=== PATIENT | female | born 1950 | race Caucasian/White ===

== ENCOUNTER → 2016-10-06 | Outpatient (CLI) | payer MEDICARE, BC | LOC: MAMO 08-14 15:20 | DX: Z12.31 Encounter for screening mammogram for malignant neoplasm of breast (principal) | CPT/HCPCS: G0202 ==

== ENCOUNTER 2021-01-16 20:07 | Inpatient (IN) | payer MEDICARE, OTHER ==
[~2021-01-16] VITALS: Ht 152.4 cm; Wt 101.2 kg
[2021-01-16 21:12] LABS: HEMOGLOBIN 15.5 gm/dl (12.3-15.3); RED BLOOD COUNT 4.82 M/UL (4.00-5.10); WHITE BLOOD COUNT 10.1 K/UL (4.5-11.0)
[2021-01-17 05:40] LABS: HEMOGLOBIN 15.7 gm/dl (12.3-15.3); RED BLOOD COUNT 4.9 M/UL (4.00-5.10); WHITE BLOOD COUNT 11.2 K/UL (4.5-11.0)
[2021-01-17] MEDS ORDERED: ZESTRIL 40 MG T40 MG PO (09:21)
[2021-01-17] MEDS ORDERED: TYLENOL EXTRA500 MG PO (09:22)
[2021-01-17] MEDS ORDERED: VITAMIN D21250 MCG PO (09:22)
[2021-01-17] MEDS ORDERED: DILTIAZEM ER180 M2 PO (09:22)
[2021-01-18 04:46] LABS: HEMOGLOBIN 15.7 gm/dl (12.3-15.3); RED BLOOD COUNT 4.84 M/UL (4.00-5.10); WHITE BLOOD COUNT 9.2 K/UL (4.5-11.0)
--- NOTE | 2021-01-18 14:07 | NUR ---
At approximately 1000 PT's NG tube removed by primary nurse per doctor order. Diet switched to clear liquids.
[2021-01-19] MEDS ORDERED: MI-ACID80 MG PO (10:04)
[2021-01-19] MEDS ORDERED: PROTONIX 40 MG40 M1 PO (10:04)
[2021-01-19] MEDS ORDERED: ZOFRAN4 MG PO (10:10)
== END 2021-01-19 09:45 | disposition home or self-care (01) | DRG 390 ==
LOC: ER1 20:07 → CDU 01-17 01:57 → MED SURG 4 01-17 08:46
PROVIDERS: Physician Assistant; ADMIT Internal Medicine
DX: K56.600 Partial intestinal obstruction, unspecified as to cause (principal); I12.9 Hypertensive chronic kidney disease with stage 1 through stage 4 chronic kidney disease, or unspecified chronic kidney disease; N18.2 Chronic kidney disease, stage 2 (mild); K21.9 Gastro-esophageal reflux disease without esophagitis; Z20.822 Contact with and (suspected) exposure to COVID-19; E55.9 Vitamin D deficiency, unspecified; Z90.710 Acquired absence of both cervix and uterus; Z88.6 Allergy status to analgesic agent
CPT/HCPCS: 36415; 74018; 80048; 80053; 81001; 83605; 83690; 83735; 85025; 87086; 99285; J1650; J2405; J7030; Q9963

== ENCOUNTER → 2021-08-13 | Outpatient (CLI) | payer MEDICARE, OTHER ==
[~2021-08-13] MED LIST: DILTIAZEM ER180 M2 PO; MI-ACID80 MG PO; PROTONIX 40 MG40 M1 PO; TYLENOL EXTRA500 MG PO; VITAMIN D21250 MCG PO; ZESTRIL 40 MG T40 MG PO; ZOFRAN4 MG PO
== END ==
LOC: KOH-I 11:36
DX: R06.02 Shortness of breath (principal)
CPT/HCPCS: 71046

== ENCOUNTER 2021-09-04 07:06 | Emergency (ER) | payer MEDICARE, OTHER ==
[2021-09-04 08:06] LABS: BUN/CREATININE RATIO 21 (0-10)
[2021-09-04 08:33] LABS: HEMOGLOBIN 8.5 gm/dl (12.3-15.3); RED BLOOD COUNT 2.67 M/UL (4.00-5.10); WHITE BLOOD COUNT 16.7 K/UL (4.5-11.0)
== END 2021-09-04 11:05 | disposition home or self-care (01) ==
LOC: ER1 07:06
PROVIDERS: Nurse Practitioner
DX: R53.1 Weakness (principal); I10 Essential (primary) hypertension; Z88.5 Allergy status to narcotic agent; Z20.822 Contact with and (suspected) exposure to COVID-19
CPT/HCPCS: 0240U; 71045; 80053; 81001; 82550; 82553; 83880; 84484; 85025; 93005; 99285; J7030

== ENCOUNTER → 2021-09-05 | Outpatient (CLI) | payer MEDICARE, OTHER | LOC: KOH-I 08:00 | DX: N28.1 Cyst of kidney, acquired (principal); K76.0 Fatty (change of) liver, not elsewhere classified; N13.30 Unspecified hydronephrosis | CPT/HCPCS: 76705; 76775 ==

== ENCOUNTER → 2021-09-20 | Outpatient (CLI) | payer MEDICARE, OTHER | LOC: MAMO 09-18 11:00 | DX: C50.919 Malignant neoplasm of unspecified site of unspecified female breast (principal); N64.4 Mastodynia; N64.59 Other signs and symptoms in breast; R89.8 Other abnormal findings in specimens from other organs, systems and tissues | CPT/HCPCS: 77066; G0279 ==

== ENCOUNTER → 2021-09-23 | Outpatient (CLI) | payer MEDICARE, OTHER | LOC: EMI 09-20 09:00 | DX: D69.6 Thrombocytopenia, unspecified (principal); D72.829 Elevated white blood cell count, unspecified; K90.9 Intestinal malabsorption, unspecified; G31.9 Degenerative disease of nervous system, unspecified; J32.0 Chronic maxillary sinusitis; R93.89 Abnormal findings on diagnostic imaging of other specified body structures | CPT/HCPCS: 70553; A9577 ==

== ENCOUNTER → 2021-09-27 | Outpatient (CLI) | payer MEDICARE, OTHER ==
[~2021-09-27] VITALS: Ht 165.1 cm; Wt 102.1 kg
[2021-09-27 12:17] LABS: HEMOGLOBIN 7.7 gm/dl (12.3-15.3)
== END ==
LOC: OPSV 11:29
PROVIDERS: Internal Medicine Hematology & Oncology
DX: D64.9 Anemia, unspecified (principal)
CPT/HCPCS: 36430; 85014; 85018; 86850; 86900; 86901; 86920; P9016

== ENCOUNTER → 2021-10-01 | Outpatient (CLI) | payer MEDICARE, OTHER | LOC: NM 07:56 | DX: D69.6 Thrombocytopenia, unspecified (principal); D72.829 Elevated white blood cell count, unspecified; K90.9 Intestinal malabsorption, unspecified | CPT/HCPCS: 78306; A9503 ==

== ENCOUNTER → 2021-10-10 | Outpatient (CLI) | payer MEDICARE, OTHER | LOC: MAMO 09-03 13:30 → EXRD 13:00 | DX: D69.6 Thrombocytopenia, unspecified (principal); D72.829 Elevated white blood cell count, unspecified; K90.9 Intestinal malabsorption, unspecified; M81.0 Age-related osteoporosis without current pathological fracture | CPT/HCPCS: 77080 ==

== ENCOUNTER → 2021-10-21 | Outpatient (CLI) | payer MEDICARE, OTHER ==
[2021-10-21 16:06] LABS: HEMOGLOBIN 8.7 gm/dl (12.3-15.3); RED BLOOD COUNT 2.3 M/UL (4.00-5.10); WHITE BLOOD COUNT 9.1 K/UL (4.5-11.0)
[2021-10-21 16:19] LABS: BUN/CREATININE RATIO 15 (0-10)
== END ==
LOC: RAD 15:32
PROVIDERS: Nurse Practitioner Family
DX: E03.9 Hypothyroidism, unspecified (principal); N18.9 Chronic kidney disease, unspecified; R60.9 Edema, unspecified; R06.02 Shortness of breath
CPT/HCPCS: 36415; 71046; 80048; 83880; 84443; 85025

== ENCOUNTER 2021-11-01 10:28 | Inpatient (IN) | payer MEDICARE, OTHER ==
[~2021-11-01] VITALS: Ht 165.1 cm; Wt 99.8 kg
[2021-11-01 12:38] LABS: HEMOGLOBIN 8.6 gm/dl (12.3-15.3); RED BLOOD COUNT 2.32 M/UL (4.00-5.10); WHITE BLOOD COUNT 8.3 K/UL (4.5-11.0)
[2021-11-01 12:56] LABS: BUN/CREATININE RATIO 15 (0-10)
[2021-11-01] MEDS ORDERED: LASIX20 MG PO (14:25)
[2021-11-02 00:09] LABS: BODY FLUID SOURCE PLEURAL; LDH, BODY FLUID 254 U/L; TOTAL PROTEIN, BODY FLUID 4.4 gm/dL; WBC (AUTOMATED) 2166 (0-500)
[2021-11-02 00:10] LABS: MONONUCLEAR CELLS 37.2 (75-100); POLYMORPHONUCLEAR % 62.8 (0-25); RBC (AUTOMATED) 6500 (0-100000)
[2021-11-02 06:23] LABS: HEMOGLOBIN 7.9 gm/dl (12.3-15.3); RED BLOOD COUNT 2.14 M/UL (4.00-5.10); WHITE BLOOD COUNT 7.8 K/UL (4.5-11.0)
[2021-11-02] MEDS ORDERED: FUROSEMIDE20 MG PO (11:43)
[2021-11-02] MEDS ORDERED: ANASTROZOLE1 MG PO (11:44)
[2021-11-02] MEDS ORDERED: METHADONE HCL5 MG PO (11:44)
[2021-11-02] MEDS ORDERED: CARVEDILOL6.25 MG PO (11:45)
[2021-11-02] MEDS ORDERED: LOSARTAN POTAS100 MG PO (11:45)
[2021-11-02] MEDS ORDERED: AMLODIPINE BESY10 MG PO (11:46)
[2021-11-02] MEDS ORDERED: LEVOTHYROXINE25 MCG PO (11:46)
--- NOTE | 2021-11-04 05:05 | NUR ---
[id number] PATIENTS DAUGHTER CALLED TO INFORM ME THAT SHE HAD GIVEN HER MOTHER ALL OF HER HOME MEDS TODAY. THAT DR NIEVES WAS CONCERNED ABOUT HER BP. THE DAUGHTER ASKED IF I COULD PLEASE KEEP A CLOSE EYE ON THE BP AND INFORM HER IF IT BECOMES TOO LOW. I AGREEDED AND I CLEARIFIED WITH THAT DAUGHTER IF SHE HAD GIVEN THE EVENING COREG DOSE. SHE STATED "YES I GAVE IT BEFORE I LEFT". I HELD THE EVENING MEDS AND MADE A NOTE, I WILL ALSO REPORT THIS TO HER ON COMING DAYSHIFT NURSE.
[2021-11-04 06:16] LABS: HEMOGLOBIN 7.5 gm/dl (12.3-15.3); RED BLOOD COUNT 2.03 M/UL (4.00-5.10); WHITE BLOOD COUNT 8.1 K/UL (4.5-11.0)
[2021-11-05 06:45] LABS: HEMOGLOBIN 7.6 gm/dl (12.3-15.3); RED BLOOD COUNT 2.09 M/UL (4.00-5.10); WHITE BLOOD COUNT 7.6 K/UL (4.5-11.0)
--- NOTE | 2021-11-05 10:51 | NUR ---
room air sat is 88%
== END 2021-11-05 13:46 | disposition home health service (06) | DRG 180 ==
LOC: ER1 10:28 → M/S 17:16 → CDU 17:16 → M/S 20:12
PROVIDERS: Internal Medicine; Physician Assistant; ADMIT Internal Medicine
PROC: 0W9B3ZZ Drainage of Left Pleural Cavity, Percutaneous Approach (ICD-10-PCS; principal; 2021-11-01)
DX: C78.00 Secondary malignant neoplasm of unspecified lung (principal); D61.811 Other drug-induced pancytopenia; J96.01 Acute respiratory failure with hypoxia; I50.33 Acute on chronic diastolic (congestive) heart failure; S22.39XA Fracture of one rib, unspecified side, initial encounter for closed fracture; J91.0 Malignant pleural effusion; J98.11 Atelectasis; C79.81 Secondary malignant neoplasm of breast; C79.51 Secondary malignant neoplasm of bone; I13.0 Hypertensive heart and chronic kidney disease with heart failure and stage 1 through stage 4 chronic kidney disease, or unspecified chronic kidney disease; N18.30 Chronic kidney disease, stage 3 unspecified; D64.9 Anemia, unspecified; D69.6 Thrombocytopenia, unspecified; G89.3 Neoplasm related pain (acute) (chronic); M54.9 Dorsalgia, unspecified; E78.5 Hyperlipidemia, unspecified; K21.9 Gastro-esophageal reflux disease without esophagitis; M19.91 Primary osteoarthritis, unspecified site; Z20.822 Contact with and (suspected) exposure to COVID-19; Z79.899 Other long term (current) drug therapy; Z90.710 Acquired absence of both cervix and uterus; Z88.5 Allergy status to narcotic agent; Z88.2 Allergy status to sulfonamides; Z80.3 Family history of malignant neoplasm of breast; Z83.3 Family history of diabetes mellitus
CPT/HCPCS: 0240U; 36415; 71045; 71046; 71275; 80048; 80053; 81001; 82040; 82550; 82553; 83605; 83615; 83880; 83986; 84155; 84157; 84484; 85025; 85027; 85610; 85652; 87015; 87070; 87077; 87086; 87116; 87186; 87205; 89051; 93005; 96374; 99285; J1940; Q9967

== ENCOUNTER → 2022-01-02 | Outpatient (CLI) | payer MEDICARE, OTHER ==
[~2022-01-02] MED LIST changes: +AMLODIPINE BESY10 MG PO; +ANASTROZOLE1 MG PO; +CARVEDILOL6.25 MG PO; +FUROSEMIDE20 MG PO; +LASIX20 MG PO; +LEVOTHYROXINE25 MCG PO; +LOSARTAN POTAS100 MG PO; +METHADONE HCL5 MG PO
== END ==
LOC: NM 08:00 → HEART 5 09:00
DX: D69.6 Thrombocytopenia, unspecified (principal); D72.829 Elevated white blood cell count, unspecified; K90.9 Intestinal malabsorption, unspecified
CPT/HCPCS: 78306; A9503

== ENCOUNTER → 2022-03-19 | Outpatient (CLI) | payer MEDICARE, OTHER | LOC: NM 09:07 | DX: D69.6 Thrombocytopenia, unspecified (principal); D72.829 Elevated white blood cell count, unspecified; K90.9 Intestinal malabsorption, unspecified; C79.52 Secondary malignant neoplasm of bone marrow | CPT/HCPCS: 78306; A9503 ==